=== PATIENT | female | born 1940 | race Caucasian/White ===

== ENCOUNTER 2021-11-17 00:28 | Outpatient (CLI) | payer MEDICARE, OTHER | END 2021-11-17 23:59 | disposition critical access hospital (66) | LOC: EMS 00:28 | DX: M54.2 Cervicalgia (principal); W19.XXXA Unspecified fall, initial encounter; Y92.008 Other place in unspecified non-institutional (private) residence as the place of occurrence of the external cause | CPT/HCPCS: A0425; A0429 ==

== ENCOUNTER 2021-11-17 00:57 | Emergency (ER) | payer MEDICARE, OTHER ==
--- NOTE | 2021-11-17 03:41 | ED Physician Documentation ---
PD HPI Fall - Stated complaint Stated Complaint: GLF/NECK PX - Chief complaint Chief Complaint: Trauma Hd/Nk - History obtained from History obtained from: Patient, EMS - History of Present Illness Mechanism of injury: Unknown Where injury occurred: Home Timing - onset: Today (tonight) Injury(ies) location: Other (no reported injury (see narrative below)) Contributing factors: No: Anticoagulated, Intoxicated - Additional information Additional information: BIBA after fall, unwitnessed. Patient was found at bottom of stairs. She arrives in cervical collar. She has no c/o . She is demented, limiting HPI/ROS. Does not recall event and denies any pain including WANG. Review of Systems Unable to obtain: Dementia PD PAST MEDICAL HISTORY - Past Medical History Past Medical History: Yes Cardiovascular: Hypertension Musculoskeletal: Osteoarthritis - Past Surgical History Past Surgical History: Yes Ortho: Hip replacement, Rotator cuff repair /[employer]: Mastectomy - Allergies Allergies/Adverse Reactions: Allergies Allergy/AdvReac Type Severity Reaction Status Date / Time No Known Drug Allergies Allergy Verified 11/17/21 01:05 - Social History Does the pt smoke?: No Smoking Status: Never smoker PD ED PE NORMAL - Vitals Vital signs reviewed: Yes - General General: No acute distress, Well developed/nourished, Other (awake, alert, NAD, smiling, confused) - HEENT HEENT: PERRL, EOMI - Neck Neck: No bony TTP - Cardiac Cardiac: RRR - Respiratory Respiratory: No respiratory distress, Clear bilaterally - Abdomen Abdomen: Soft, Non tender - Neuro Neuro: Normal speech, Other (AAOx2 ([facility], but not which one)) Eye Opening: Spontaneous Motor: Obeys Commands Verbal: Confused GCS Score: 14 Results - Vitals Vitals: Oxygen O2 Source Room air - Rads (name of study) CT head Radiology: Prelim report reviewed, See rad report CT cervical spine Radiology: Prelim report reviewed, See rad report PD MEDICAL DECISION MAKING - ED course Complexity details: reviewed results, re-evaluated patient, considered differential, d/w family ED course: presents via ambulance after fall at home. Clinical clearance of cervical spine is impeded by dementia, and given her age and reportedly fell down stairs, CTH and CT cervical spine undertaken . There are no acute findings on these studies and she is thus discharged. Departure - Departure Disposition: Home, Self Care Clinical Impression: Fall Condition: Good Instructions: ED Fall Uncertain Cause, ED Sprain Strain Neck Comments: The CT scans of your head and neck do not show any concerning/acute findings. There is no evidence of injury. Discharge Date/Time: 11/17/21 04:02
[2021-11-17 04:04] VITALS: BP 140/60
--- NOTE | 2021-11-17 08:30 | CT Report ---
PROCEDURE: HEAD WO INDICATIONS: fall, head injury TECHNIQUE: Noncontrast 4.5 mm thick angled axial sections acquired from the foramen magnum to the vertex. For r adiation dose reduction, the following was used: automated exposure control, adjustment of mA and/or kV according to patient size. COMPARISON: None. FINDINGS: Image quality: Excellent. CSF spaces: Basal cisterns are patent. No extra-axial fluid collections. Ventricles are normal in size and shape. Brain: No midline shift. No intracranial masses or hemorrhage. Rios-white matter interface is norm al. Skull and face: Calvarium and visualized facial bones are intact, without suspicious lesions. Sinuses: No acute paranasal sinus finding. Postsurgical changes. IMPRESSION: No acute intracranial finding. No significant change from preliminary report. Reviewed by: Alejandro Roth MD on 11/17/2021 8:29 AM PDT Approved by: Alejandro Roth MD on 11/17/2021 8:29 AM PDT Station ID: [id number]
--- NOTE | 2021-11-17 08:31 | CT Report ---
PROCEDURE: CERVICAL SPINE WO INDICATIONS: fall, neck pain TECHNIQUE: Noncontrast 3 mm thick sections acquired from the skull base to the T4 level. Sagittal and coronal r eformats were then constructed. For radiation dose reduction, the following was used: automated exp osure control, adjustment of mA and/or kV according to patient size. COMPARISON: None. FINDINGS: Image quality: Excellent. Bones: No fractures or dislocations. Visualized superior ribs are intact. Soft tissues: Prevertebral soft tissues are normal in thickness. No paravertebral hematomas. No ap ical pneumothoraces. IMPRESSION: No CT evidence of acute traumatic cervical spine injury. No significant change from preliminary repor t. Reviewed by: Alejandro Roth MD on 11/17/2021 8:29 AM PDT Approved by: Alejandro Roth MD on 11/17/2021 8:29 AM PDT Station ID: [id number]
== END 2021-11-17 04:02 | disposition home or self-care (01) ==
LOC: ED 00:57
DX: Z04.3 Encounter for examination and observation following other accident (principal); W19.XXXA Unspecified fall, initial encounter
CPT/HCPCS: 99281; 99284